=== PATIENT | female | born 1965 | race Caucasian/White ===

== ENCOUNTER 2023-03-28 12:32 | Emergency (ER) | payer BC, SELFPAY ==
[2023-03-28 12:43] VITALS: BP 153/100; PULSE 78; RESP 20; TEMP 37.4; O2SAT 99; BMI 28.3
--- NOTE | 2023-03-28 12:50 | CRLHL7_ITS ---
For Patients: As a result of the Cures Act, medical imaging exams and procedure reports are released immediately into your electronic medical record. You may view this report before your referring provider. If you have questions, please contact your health care provider. Indication: Injury. Technique: Left 3rd digit, 3 views. Comparison: None. Findings/Impression: Bones: Alignment is normal. No displaced fractures or bone lesions. Joint spaces: Unremarkable. Soft tissues: No radiopaque foreign bodies. Dictated by Ty Ramirez MD @ 03/28/2023 1:26:31 PM (Electronically Signed)
--- NOTE | 2023-03-28 14:14 | ED_ITS ---
HPI - Extremity Injury (Upper) General Date Seen: 03/28/23 Chief Complaint: Extremity Pain/Injury, Upper Stated Complaint: smashed L middle finger smashed/bleeding Time Seen by Provider: 03/28/23 12:33 Source: patient Mode of arrival: ambulatory Limitations: no limitations History of Present Illness HPI narrative: Patient is a 49-year-old female presents here with an injury to her left 3rd finger, she was doing some remodeling at home, when head it, between a pole and another pole. She complains of pain in the distal part of her left 3rd finger, it is split open slightly, she has been working with that and only at the [place] of her daughter she is here today to be seen. She denies any numbness tingling weakness, she is unsure when her last tetanus shot was but says she will get a tetanus shot. Denies any other MD complaint: injury to: finger Onset (ago): hour(s) Related Data Allergies Allergy/AdvReac Type Severity Reaction Status Date / Time clindamycin Allergy Verified 03/28/23 12:43 Penicillins Allergy Verified 03/28/23 12:43 Review of Systems Status of ROS: Reports: 6 or more systems reviewed and unremarkable except as noted in History and below [facility] Social History Smoking Status: Never smoker Do you use any of these nicotine containing products: None Second hand tobacco smoke exposure: Yes How often do you have a drink containing alcohol: never How often do you have six or more drinks on one occasion: Never AUDIT-C Alcohol total score: 0 Non-prescribed substance use: denies use service: No Exam Narrative: Exam Narrative: On examination here she is in no apparent distress she has a swelling with obvious hematoma of the distal pad surface of her left 3rd finger, there is a couple small vertical I am lacerations of approximately 2-3 mm each, with some tissue protruding from them. No subungual hematomas noted, or D IP joint has normal flexion extension, as does the PIP joint. I counseled her to get an x- ray, after some coaxing she was in agreement Const: Vital Signs, click to edit/add: Vital Signs - 24 hr 03/28/23 12:43 Temperature 99.4 F Pulse Rate [Pulse Oximeter] 78 Respiratory Rate 20 Blood Pressure [Ri ght Forearm] 153/100 H Pulse Oximetry 99 Oxygen Delivery Me thod Room Air Documenting provider has reviewed patient's vital signs: yes Course Course Hospital Course: This with the patient we got an x-ray, this showed no acute bony abnormality, given the swelling of that she has currently, would not suture these, we will clean it out, put some bacitracin and she or a stack finger splint, signs of infection or does discussed in detail, she has follow-up with these occur. Vital Signs Vital signs: Initial Vital Signs Temperature 99.4 F 03/28/23 12:43 Temperature Source Temporal Artery Scan 03/28/23 12:43 Pulse Rate 78 03/28/23 12:43 Pulse Rhythm Regular 03/28/23 12:43 Respiratory Rate 20 03/28/23 12:43 Blood Pressure 153/100 H 03/28/23 12:43 Blood Pressure Mean 117 H 03/28/23 12:43 Blood Pressure Position Sitting 03/28/23 12:43 Pulse Oximetry 99 03/28/23 12:43 Oxygen Delivery Method Room Air 03/28/23 12:43 Vital Signs Temperature 99.4 F 03/28/23 12:43 Pulse Rate 78 03/28/23 12:43 Respiratory Rate 20 03/28/23 12:43 Blood Pressure 153/100 H 03/28/23 12:43 Pulse Oximetry 99 03/28/23 12:43 Oxygen Delivery Method Room Air 03/28/23 12:43 Temperature 99.4 F 03/28/23 12:43 Pulse Rate 78 03/28/23 12:43 Respiratory Rate 20 03/28/23 12:43 Blood Pressure 153/100 H 03/28/23 12:43 Pulse Oximetry 99 03/28/23 12:43 Oxygen Delivery Method Room Air 03/28/23 12:43 MDM - Extremity Injury (Upper) Medical Records Attestation: I reviewed the patient's medical records. Imaging Data Finger XR: Attestation: I have reviewed the pertinent imaging results. My impression: Negative x-ray Radiologist's impression: Patient: CRISTY TOLEDO Facility:?[facility] Patient ID:?[id number] Site Patient ID:?[id number]. Site :?[id number] Study:?XRay Extremity Left 3rd finger 3v-03/28/2023 1:02:07 PM Ordering Physician:Goldie Hunter Final Report: Indication: Injury. Technique: Left 3rd digit, 3 views. Comparison: None. Findings/Impression: Bones: Alignment is normal. No displaced fractures or bone lesions. Joint spaces: Unremarkable. Soft tissues: No radiopaque foreign bodies. Dictated by Ty Ramirez MD @ 03/28/2023 1:26:31 PM (Electronic Signature) Discharge Plan Discharge Clinical Impression: Contusion of finger, Finger laceration Patient Disposition: Home, Self-Care Condition: Stable Instructions: Contusion in Adults (ED), Laceration Without Closure (ED) Additional Instructions: As I discussed with you we will you go home bacitracin daily to the wound, once the swelling goes away the wound will shrink common being normal laceration. Would recommend use of a Band-Aid till this occurs, and also use of the Stack finger splint. Return here if increasing fevers chills redness swelling or signs of infection, no evidence of a fracture on x-ray. Follow Up/Referrals: Provider,Not a Local [Primary Care Provider] - Stand Alone Forms: [facility]
== END 2023-03-28 13:29 | disposition home or self-care (01) ==
PROVIDERS: Emergency Provider Family Medicine
DX: S61.213A Laceration without foreign body of left middle finger without damage to nail, initial encounter (principal); W23.0XXA Caught, crushed, jammed, or pinched between moving objects, initial encounter
CPT/HCPCS: 73140; 99283

== ENCOUNTER 2025-06-17 15:02 | Emergency (ER) | payer OTHER, SELFPAY ==
--- OUTSIDE RECORDS SUMMARY | 2025-06-17 15:05 | XMS_ITS | Clinical Summary ---
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 Active nitrofurantoin macrocrystals/m onohydrate (Macrobid) 100 mg capsuleIndicati ons:UTI symptoms Take 1 Capsule (100 mg) by mouth two times daily. 10 Capsule 11/20/2024 Active Social History Tobacco Use Types Packs/Day Years Used Date Smoking Tobacco: Never Smokeless Tobacco: Never Social Connections Answer Date Recorded Do you often feel lonely or isolated from those around you? 0 11/19/2024 Financial Resource Strain Answer Date R ecorded Difficulty of Paying Living Expenses 3 12/20/2024 Difficulty of Paying Living Expenses Not on file 12/20/2024 Food Insecurity Answer Date Recorded Do you worry your food will run out before you are able to buy more? 1 11/19/2024 Transportation Needs Answer Date Record ed Does lack of transportation keep you from medica l appointments? 1 11/19/2024 Does lack of transportation keep you from work, meetings or getting things that you need? 1 11/19/2024 Housing Stability Answer Date Recorded What is your housing situation today? 1 11/19/2024 Utilities Answer Date Recorded Do you have trouble paying f or utilities (for example, heat, electricity, water, phone)? 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 Gender Identity Not on file Sexual Orientation Not on file Obstetrics History Last Filed Vital Signs Vital Sign Reading Time Taken Comments Blood Pressure 158/88 11/19/2024 2:57 PM LOSS PREVENTION CONSULTANT Pulse 79 11/19/2024 2:57 PM LOSS PREVENTION CONSULTANT Temperature 36.6 C (97.9 F) 11/19/2024 2:57 PM LOSS PREVENTION CONSULTANT Respiratory Rate 16 11/19/2024 2:57 PM LOSS PREVENTION CONSULTANT Oxygen Saturation 100% 11/19/2024 2:57 PM LOSS PREVENTION CONSULTANT Inhaled Oxygen Concentration - - Weight 79.8 kg (176 lb) 11/19/2024 2:57 PM LOSS PREVENTION CONSULTANT Height - - Body Mass Index - - Plan of Treatment Health Maintenance Due Date Last Done Comments Tetanus booster 1975 Depression screening for age 12+ 1976 HIV for age 15-65 1979 BMI (ht and wt on same day) for age 18+ 1982 Hepatitis C screening for ag e 18-79 1982 Pap test for age 21-65 1985 Colonoscopy through age 75 2009 Lipids for age 45-75 2009 Mammogram for age 45-75 2009 Pneumococcal series for age 50+ (1 of 1 - PCV) 2014 Zoster (shingles) series for age 50+ (1 of 2) 2014 COVID-19 vaccine series (1 - 2023- season) 2024 Influenza Vaccine (#1) 2025 RSV vaccine for adults or (1 - 1-dose 75+ series) 2039 Hepatitis B series for 19+ Aged Out N o longer eligible based on patient's age to complete this topic Insurance [facility] IN[facility]MN[facility] * Guarantor: [employer] Account Type Relation to Patient Date of Phone Billing Address Personal/Family [address] [place] [id number] Care Teams Iron And Steel Work Supervisor Relationship Specialty Start Date End Date Margarita Mullen MD [address] [place] [phone] PCP - General Family Practice 11/19/24
--- OUTSIDE RECORDS SUMMARY | 2025-06-17 15:05 | XMS_ITS | Encounter Summary ---
Author Organization [facility] Address [address] [place] [address] Care Team Providers Care Oyster Grower Name Role Phone Margarita Cardona M.D. Primary Care Provider + Encounter Details Date Type Department Care Team (Late st Contact Info) Description 05/27/2025 Orders Only [facility] [address] [place] [id number] Margarita Cardona M.D. [address] [place] [address] Screening Cancer Colon Social History Tobacco Use Types Packs/Day Years Used Date Smoking Tobacco: Never Passive Smoke Exposure: Past Smokeless Tobacco: Never Alcohol Use Standard Drinks/Week Comments Never 0 (1 standard drink = 0.6 oz pur e alcohol) Humiliation, Afraid, Rape, and Kick questionnair e Answer Date Recorded Within the last year, have y ou been afraid of your partner or ex-partner? No 01/31/2022 Within the last year, have y ou been humiliated or emotionally abused in other ways by your partner or ex-partner? No Within the last year, have y ou been kicked, hit, slapped, or otherwise physically hurt by your partner or ex-partner? No 01/31/2022 Within the last year, have y ou been raped or forced to have any kind of sexual activity by your partner or ex-partner? No 01/31/2022 Hunger Vital Sign Answer Date Recorded Within the past 12 months, y ou worried that your food would run out before you got the money to buy more. Never true 02/01/20 22 Within the past 12 months, t he food you bought just didn't last and you didn't have money to get more. Never true 01/31/2022 PRAPARE - Transportation Answer Date Re corded In the past 12 months, has l ack of transportation kept you from medical appointments or from getting medications? No 01/18 In the past 12 months, has l ack of transportation kept you from meetings, work, or from getting things needed for daily living? No 01/31/2022 Housing Stability Vital Sign Answer Reyes e Recorded In the last 12 months, was t here a time when you were not able to pay the mortgage or rent on time? No 01/31/2022 In the last 12 months, how many places have you lived? 1 01/31/2022 In the last 12 months, was t here a time when you did not have a steady place to sleep or slept in a care home (including now)? No 01/31/2022 Depression Answer Date Recor ded PHQ-9 Total Score (max 27) 4 02/14 Education Answer Date Recorded What is the highest level of school you have completed or the highest degree you have received? 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 [address] [place] [address] Scheduled Orders Name Type Priority Associated Diagnoses Orde r Schedule Cologuard - Sent Out Lab Lab Routine Screening Cancer Colon Expected: 06/10/2025, Expires: 08/27/2026 documented as of this encounter Visit Diagnoses Diagnosis Screening Cancer Colon documented in this encounter Additional Health Concerns Assessment Noted Time PHQ-9 Depression Total Score: 4 02/15/20 24 12:06 PM CDT documented as of this encounter Care Teams Oyster Grower Relationship Specialty Start Date End Date Margarita Cardona M.D. [address] [place] [address] PCP - General 05/04/17 documented as of this encounter
--- OUTSIDE RECORDS SUMMARY | 2025-06-17 15:05 | XMS_ITS | Clinical Summary ---
Author Organization [facility] Address [address] [place] [address] Care Team Providers Care Rf Technician Name Role Phone Margarita Cardona M.D. Primary Care Provider + Source Comments Patient records contain information from all sites at [facility]. For routine questions regarding patient records, call [phone] during business hours, M-F 8:00 AM - 5:00 PM Central Time. Record requests for emergency care only can be directed to [phone] at any time.[facility] Allergies Active Allergy Reactions Criticality Noted Date Comments Amoxicillin-Pot Clavulanate Rash 02/02/20 11 Clindamycin Hives (Reselect Reaction) 0 Fluconazole Rash Medium 01/30/2020 Penicillins Rash 10/27/2015 Medications LACTOBACILLUS 3/FOS/PANTETHINE (PROBIOTIC AND ACIDOPHILUS ORAL) Take 1 capsule by mouth daily. 6 Active digestive enzymes capsule Take 1 capsule by mouth 3 (three) times a day. Active albuterol 90 mcg/actuation inhaler Inhale 2 puffs every 4 (four) hours as needed for wheezing or shortness of breath. 18 g 11 4 Active hydrOXYzine (ATARAX) 10 mg tablet Take 1-2 tablets (10-20 mg total) by mouth every 6 (six) hours as needed for anxiety. 100 tablet 2 4 Active ALPRAZolam (Xanax) 0.5 mg tablet Take 1 tablet (0.5 mg total) by mouth at bedtime as needed for anxiety. 30 tablet 5 Active Active Problems Problem Noted Date Diagnosed Date Asthma Mild Intermittent 02/15/2024 Anxiety Generalized Disorder 01/26/2018 Insomnia 09/26/2013 Resolved Problems Problem Noted Date Diagnosed Date Resolved Date Pneumonia 01/16/2020 01/18/2020 Encounters Date Type Department Care Team Description 06/10/2025 Refill Department of Family Medicine in [place], [place] [address] [place] [address] Margarita Cardona M.D. Med Refill 06/10/2025 Orders Only [facility] [address] [place] [address] Margarita Cardona M.D. Screening Cancer Colon 05/27/2025 Orders Only [facility] [address] [place] [address] Margarita Cardona M.D. Screening Cancer Colon 03/25/2025 Orders Only [facility] Margarita Cardona M.D. Screening Examination Diabetes Mellitus; Screening Mammogram Breast Cancer from Last 3 Months Immunizations Immunization Administration Dates Next Due RZV (SHINGRIX) 04/02/2019(Deferred: Patient Ref used) Tdap 04/02/2019(Deferred: Patient Ref used) Social History Tobacco Use Types Packs/Day Years Used Date Smoking Tobacco: Never Passive Smoke Exposure: Past Smokeless Tobacco: Never Tobacco Cessation:Counseling Given: Not Answered Alcohol Use Standard Drinks/Week Comments Never 0 [...] place to sleep or slept in a mcc (including now)? No 01/31/2022 Depression Answer Date Recor ded PHQ-9 Total Score (max 27) 4 02/14 Education Answer Date Recorded What is the highest level of school you have completed or the highest degree you have received? 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 Gender Identity Female 01/31/2022 9:56 AM CDT Sexual Orientation Straight 01/31/2022 9: 56 AM CDT Last Filed Vital Signs Vital Sign Reading Time Taken Comments Blood Pressure 137/86 02/15/2024 11:51 AM CDT Pulse 62 02/15/2024 11:51 AM CDT Temperature 37.1 C (98.8 F) 02/15/2024 11:51 AM CDT Respiratory Rate 18 01/30/2020 4:12 PM CDT Oxygen Saturation 96% 01/28/2020 11:00 AM CDT Inhaled Oxygen Concentration - - Weight 79.4 kg (175 lb 0.7 oz) 02/15/2024 11:51 AM CDT Height 165 cm (5' 4.96) 02/15/2024 11:51 AM CDT Body Mass Index 29.16 02/15/2024 11:51 AM CDT Plan of Treatment Upcoming Encounters Date Type Department Care Team (Late st Contact Info) Description 08/14/2025 2:00 PM CDT Office Visit Department of Family Medicine in [place], [place] [address] [place] [address] Margarita Cardona M.D. [address] [place] [address] Health Maintenance Due Date Last Done Comments CT Colonography 1964 Colonoscopy 1964 FIT 1964 Mammogram 1964 DTaP,Tdap,and Td Vaccines (1 - Tdap) 1983 Pneumococcal vaccine (50+ years) (1 of 2 - PCV) 1983 Zoster Vaccines (1 of 2) 2014 RSV vaccine - (32-36 weeks) or 60+ years (1 - Risk 60-74 years 1-dose series) 2024 COVID-19 Vaccine (1 - season) 2024 Depression Screening (Annual PHQ-2) 11/20/2024 Fasting Glucose for Diabetes Screening 01/31/2025 01/31/2022, 01/18/2020, 01/17/2020, Additional history exists Cologuard 02/10/2025 02/10/2022, 02/09/2022 Colorectal Cancer Screening 02/10/2025 Influenza Vaccine (#1) 2025 Lipid (Cholesterol) Screening 01/31/2027 01/31/2022 HIV Screening Completed 01/17/2020 Hepatitis C Screening Completed 01/31/2022 IPV Vaccines Aged Out No longer eligi ble based on patient's age to complete this topic Procedures Procedure Name Priority Date/Time Associated Diagnosis Comments COLOGUARD Routine 02/09/2022 8:00 PM CDT Screening Cancer Colon HEMOGLOBIN A1C, B Routine 01/31/2022 10: 30 AM CDT Screening Examination Diabetes Mellitus HCV AB SCRN W/REFLEX TO HCV PCR, S Routine 01/31/2022 10:30 AM CDT Screening Examination For Viral Disease LIPID PANEL, S Routine 01/31/2022 10:30 AM CDT Screening Lipid HIV-1/-2 AG AND AB SCREEN, PLASMA STAT 01/17/2020 4:14 PM 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 A negative Cologuard result indicates a low likelihood that a colorectal cancer (CRC) or advanced adenoma (adenomatous polyps with more advanced pre-malignant features) is present. The chance that a person with a negative Cologuard test has a colorectal cancer is less than 1 in 1500 (negative predictive value >99.9%) or has an advanced adenoma is less than 5.3% (negative predictive value 94.7%). These data are based on a prospective cross-sectional study of 10,000 individuals at average risk for colorectal cancer who were screened with both Cologuard and colonoscopy. (Nazanin Jean al, N Engl J Med 2014;370(14):0754-5475) The normal value (reference range) for this assay is negative. COLOGUARD RE-SCREENING RECOMMENDATION: Periodic colorectal cancer screening is an important part of preventive healthcare for asymptomatic individuals at average risk for colorectal cancer. Following a negative Cologuard result, the [place] Cancer Society and U.S. Multi-Society Task Force screening guidelines recommend a Cologuard re-screening interval of 3 years. References: [employer] Guideline for Colorectal Cancer Screening: https://www.cancer.org/cancer/abfwo-pqzogo-egkpti/detection- diagnosis-staging/acs-recommendations.html.; Pedro TAVAREZ, Vince HOLT, Tammy ALEMAN, Colorectal Cancer Screening: Recommendations for Physicians and Patients from the U.S. Multi-Society Task Force on Colorectal Cancer Screening , Am J Gastroenterology 2017; 112:0545-3922. TEST DESCRIPTION: Composite algorithmic analysis of stool DNA-biomarkers with hemoglobin immunoassay. Quantitative values of individual biomarkers are not reportable and are not associated with individual biomarker result reference ranges. Cologuard is intended for colorectal cancer screening of adults of either sex, 45 years or older, who are at average-risk for colorectal cancer (CRC). Cologuard has been approved for use by the U.S. FDA. The performance of Cologuard was established in a cross sectional study of average-risk adults aged 50-84. Cologuard performance in patients ages 45 to 49 years was estimated by sub-group analysis of near-age groups. Colonoscopies performed for a positive result may find as the most clinically significant lesion: colorectal cancer [4.0%], advanced adenoma (including sessile serrated polyps greater than or equal to 1cm diameter) [20%] or non- advanced adenoma [31%]; or no colorectal neoplasia [45%]. These estimates are derived from a prospective cross-sectional screening study of 10,000 individuals at average risk for colorectal cancer who were screened with both Cologuard and colonoscopy. (Nazanin Solano et al, N Engl J Med 2014;370(14):3411-0242.) Cologuard may produce a false negative or false positive result (no colorectal cancer or precancerous polyp present at colonoscopy follow up). A negative Cologuard test result does not guarantee the absence of CRC or advanced adenoma (pre-cancer). The current Cologuard screening interval is every 3 years. ([employer] [employer] Society and U.S. Multi-Society Task Force). Cologuard performance data in a 10,000 patient pivotal study using colonoscopy as the reference method can be accessed at the following location: www.[employer].com/results. Additional description of the Cologuard test process, warnings and precautions can be found at www.[employer] Technology[employer].com. Stool (Stool) 02/09/2022 8:0 0 PM CDT 02/11/2022 10:11 AM CDT us Margarita Cardona M.D. LAB BODY FLUIDS AND STOO LS ORDERABLES Final Result [facility] [address] [place] [address] [facility] [address] [facility], [address] [place] [address] * (ABNORMAL) Lipid Panel (01/31/2022 10:30 AM CDT) Cholesterol, Total 256(H) mg/dL 2021 4:13 PM CDT [facility] Comment: ----REFERENCE VALUE---- Desirable: < 200 Borderline high: 200 - 239 High: > or = 240 Triglycerides 114 mg/dL 01/31/2022 4:13 PM CDT [facility] Comment: ----REFERENCE VALUE---- Normal: <150 Borderline high: 150-199 High: 200-499 Very high: > or =500 Cholesterol, HDL 70 >=50 mg/dL 02/01/20 4:13 PM CDT [facility] Calculated LDL 163(H) mg/dL 01/31/2022 4:13 PM CDT [facility] Comment: ----REFERENCE VALUE---- Desirable: <100 mg/dL Above Desirable: 100-129 mg/dL Borderline High: 130-159 mg/dL High: 160-189 mg/dL Very High: >=190 mg/dL Cholesterol, Non-HDL, Calculated 186(H) mg/dL 01/31/2022 4:13 PM CDT [facility] Comment: ----REFERENCE VALUE---- Desirable: <130 Above Desirable: 130-159 Borderline high: 160-189 High: 190-219 Very high: > or =220 Blood (Blood, Venous) 01/31/2022 10:30 AM CDT 01/31/2022 3:08 PM CDT us Margarita Cardona M.D. LAB BLOOD ADD-ON Final R esult [facility] [address] [place] [address], [facility] in [place] [address] [place] [address] * HCV Ab Scrn w/Reflex to HCV PCR, Serum (01/31/2022 10:30 AM CDT) HCV Ab Screen, S Negative Negative 02/01/2022 8:[address] [facility] Comment:[id number]-[id number] rat io is <1.00. Blood (Blood, Venous) 01/31/2022 10:30 AM CDT 02/01/2022 6:54 AM CDT Margarita Cardona M.D. LAB MICROBIOLOGY - BLOOD ORDERABLES Final Result [facility] [address] [place] [address] [facility] Dept. of Laboratory Medicine and Pathology [address] [place] [address] * Hemoglobin A1c (01/31/2022 10:30 AM CDT) Pathologist [facility] Hemoglobin A1c, B 5.1 4.2 - 5.6 % 01/31/2022 12:49 PM CDT [facility] Blood (Blood, Venous) 01/31/2022 10:30 AM CDT 01/31/2022 11:58 AM CDT Margarita Cardona M.D. LAB BLOOD ADD-ON Final R esult [facility] [address] [place] [address], [place] [address] * HIV-1/-2 Ag and Ab Screen, Plasma (01/17/2020 4:14 PM PIPE ORGAN MECHANIC) HIV-1/-2 Ag and Ab Screen, P Negative Negative 01/17/2020 9:26 [address] [facility] Comment: Negative result does not rule out HIV infection. If exposure to HIV infection occurred <14 days ago, contact the laboratory to request addition of HIV-1 RNA detection / quantification test (HIVQN). Blood 01/17/2020 4:14 PM PIPE ORGAN MECHANIC 01/17/2020 8:33 PM PIPE ORGAN MECHANIC us Jimmie Bergman M.D. LAB MICROBIOLOGY - BLOOD O RDERABLES Final Result [facility] [address] [place] [address] [facility] Dept. of Laboratory Medicine and Pathology [address] [id number] from Last 3 Months or Most Recently Relevant to Health Maintenance Insurance CIG Advance Directives For more information, please contact: [phone] * Full Code (Latest Code Status on File) Date Activated Date Inactivated Comments 01/16/2020 7:06 AM 01/18/2020 4:52 PM Question Answer Comments Full Code: Discussed Care Teams Rf Technician Relationship Specialty Start Date End Date Margarita Cardona M.D. [address] [place] [address] PCP - General 05/04/17
--- OUTSIDE RECORDS SUMMARY | 2025-06-17 15:05 | XMS_ITS | Encounter Summary ---
Author Organization [facility] Address [address] [place] [address] Care Team Providers Care Lcpc Name Role Phone Margarita Cardona M.D. Primary Care Provider + Encounter Details Date Type Department Care Team (Late st Contact Info) Description 06/10/2025 Orders Only [facility] [address] [place] [id number] Margarita Cardona M.D. [address] [place] [address] Screening Cancer Colon Social History [...] the money to buy more. Never true 03/14/20 22 Within the past 12 months, t [...] place to sleep or slept in a group home (including now)? No 01/31/2022 Depression Answer Date Recor ded PHQ-9 Total Score (max 27) 4 02/14 Education Answer Date Recorded What is the highest level of school you have completed or the highest degree you have received? 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 [address] [place] [address] documented as of this encounter Visit Diagnoses Diagnosis Screening Cancer Colon documented in this encounter Additional Health Concerns Assessment Noted Time PHQ-9 Depression Total Score: 4 02/15/20 24 12:06 PM CDT documented as of this encounter Care Teams Lcpc Relationship Specialty Start Date End Date Margarita Cardona M.D. [address] [place] [phone] PCP - General 05/04/17 documented as of this encounter
--- OUTSIDE RECORDS SUMMARY | 2025-06-17 15:05 | XMS_ITS | Encounter Summary ---
Author Organization [facility] Address [address] [place] [address] Care Team Providers Care Psychiatric Np Name Role Phone Margarita Cardona M.D. Primary Care Provider + Reason for Visit * Reason Comments Med Refill Encounter Details Date Type Department Care Team (Late st Contact Info) Description 06/10/2025 Refill Department of Family Medicine in [place], [place] [address] [place] [address] Margarita Cardona M.D. [address] [place] [phone] Med Refill Social History Tobacco Use Types Packs/Day Years [...] place to sleep or slept in a alf (including now)? No 01/31/2022 Depression Answer Date Recor ded PHQ-9 Total Score (max 27) 4 02/14 Education Answer Date Recorded What is the highest level of school you have completed or the highest degree you have received? 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 - 06/13/2025 3:33 PM CDT No showed her last visit with me. I haven't seen her in some time. * Telephone Encounter - Christi Cramer R.N. - 06/12/2025 8:09 AM CDT R: Prescription pended for refill. S: Request from: pharmacy B: Last order date 12/12/2024 A: Name of Medication(s) Needing Refill: Requested Prescriptions Pending Prescriptions Disp Refills ALPRAZolam (Xanax) 0.5 mg tablet [Pharmacy Med Name: ALPRAZOLAM 0.5MG TABS] 30 tablet 0 Sig: TAKE ONE TABLET BY MOUTH AT BEDTIME NEEDED FOR ANXIETY Last Appointment: 02/15/2024 Future Appointment: 08/14/2025 Pharmacy Verified: Yes * Telephone Encounter - Hank Dean V. - 06/12/2025 6:10 AM CDT Needs Review: Med Refill Team is unable to forward request to provider. Controlled Substance Primary Provider: Margarita Cardona M.D. Requested Prescriptions Pending Prescriptions Disp Refills ALPRAZolam (Xanax) 0.5 mg tablet [Pharmacy Med Name: ALPRAZOLAM 0.5MG TABS] 30 tablet 0 Sig: TAKE ONE TABLET BY MOUTH AT BEDTIME NEEDED FOR ANXIETY documented in this encounter Plan of Treatment Upcoming Encounters Date Type Department Care Team (Late st Contact [facility]) Description 08/14/2025 2:00 PM CDT Office Visit Department of Family Medicine in [place], [place] [address] [place] [address] Margarita Cardona M.D. [address] [place] [phone] documented as of this encounter Visit Diagnoses Not on filedocumented in this encounter Additional Health Concerns Assessment Noted Time PHQ-9 Depression Total Score: 4 02/15/20 24 12:06 PM CDT documented as of this encounter Care Teams Psychiatric Np Relationship Specialty Start Date End Date Margarita Cardona M.D. [address] [place] [phone] PCP - General 05/04/17 documented as of this encounter
[2025-06-17 15:08] VITALS: BP 140/92; PULSE 82; RESP 16; TEMP 36.6; O2SAT 97; BMI 27.1
--- NOTE | 2025-06-17 15:30 | ED.GENADULT ---
HPI - General Adult General Chief complaint: Dental/Oral/Mouth Injury/Pain Stated complaint: pain in upper jaw after root cannel Time Seen by Provider: 06/17/25 15:06 History of Present Illness HPI narrative: pt. presents to the ED today with pain in the both sides of the upper jaw following a root cannel in the upper right jaw. pt. consulted with provider that did the surgery and he want to place the pt. on antibiotics but pt. is allergic to all the antibiotic he want to prescribed. pt. was then instructed to present to an or ED for further evaluation 60-year-old woman presenting to the emergency department with concern of possible dental infection. Had recent root canal and has follow-up with dentist anticipated in a day or 2 but was recommended to come to the emergency department due to this increased pain in bilateral upper face. Root canal apparently took place in the right upper dentition. Due to apparent antibiotic allergies was recommended to present to the emergency department. She has not had fever nor drainage. A little puffy in the upper face. Related Data Home Medications ?Medication ?Instructions ?Recorded ?Confirmed albuterol sulfate 90 mcg/actuation 2 puff inhalation Q4H PRN wheezing 06/17/25 06/17/25 aerosol inhaler alprazolam 0.5 mg tablet 0.5 mg PO QPM PRN anxiety 06/17/25 06/17/25 hydroxyzine HCl 10 mg tablet 10 - 20 mg PO Q6H PRN anxiety 06/17/25 06/17/25 Previous Rx's ?Medication ?Instructions ?Recorded cefdinir 300 mg capsule 300 mg PO BID 7 days #14 caps 06/17/25 oxycodone-acetaminophen 5 mg-325 1 - 2 tab PO Q4-6H PRN pain #8 tabs 06/17/25 mg tablet (Percocet) Allergies Allergy/AdvReac Type Severity Reaction Status Date / Time clindamycin Allergy Rash Verified 06/17/25 15:07 Penicillins Allergy Rash Verified 06/17/25 15:07 azithromycin AdvReac Mild Abdominal Verified 06/17/25 15:07 Pain Review of Systems Status of ROS: Reports: 6 or more systems reviewed and unremarkable except as noted in History and below PFSH PFSH Social History Smoking Status: Never smoker Do you use any of these nicotine containing products: None Second hand tobacco smoke exposure: Yes How often do you have a drink containing alcohol: never How often do you have six or more drinks on one occasion: Never AUDIT-C Alcohol total score: 0 Non-prescribed substance use: denies use service: No Exam Narrative: Exam Narrative: Pleasant. NAD. Breathing easily. Oropharynx is unremarkable dentition in good repair. Do not appreciate any swelling. Capped teeth in the upper maxillary dentition as expected. Not tender to percussion. Extraocular movements are full. Minimal discomfort perhaps to palpation of the upper face right greater than left. Const: Vital Signs, click to edit/add: Vital Signs - 24 hr 06/17/25 15:08 Temperature 97.9 F Pulse Rate [Pulse Oximeter] 82 Respiratory Rate 16 Blood Pressure [Ri ght Upper Arm] 140/92 H Pulse Oximetry 97 Oxygen Delivery Me thod Room Air Documenting provider has reviewed patient's vital signs: yes Course Vital Signs Vital signs: Initial Vital Signs Temperature 97.9 F 06/17/25 15:08 Temperature Source Temporal Artery Scan 06/17/25 15:08 Pulse Rate 82 06/17/25 15:08 Respiratory Rate 16 06/17/25 15:08 Blood Pressure 140/92 H 06/17/25 15:08 Blood Pressure Mean 108 H 06/17/25 15:08 Blood Pressure Position Sitting 06/17/25 15:08 Pulse Oximetry 97 06/17/25 15:08 Oxygen Delivery Method Room Air 06/17/25 15:08 Vital Signs Temperature 97.9 F 06/17/25 15:08 Pulse Rate 82 06/17/25 15:08 Respiratory Rate 16 06/17/25 15:08 Blood Pressure 140/92 H 06/17/25 15:08 Pulse Oximetry 97 06/17/25 15:08 Oxygen Delivery Method Room Air 06/17/25 15:08 Temperature 97.9 F 06/17/25 15:08 Pulse Rate 82 06/17/25 15:08 Respiratory Rate 16 06/17/25 15:08 Blood Pressure 140/92 H 06/17/25 15:08 Pulse Oximetry 97 06/17/25 15:08 Oxygen Delivery Method Room Air 06/17/25 15:08 Medical Decision Making MDM Narrative Medical decision making narrative: Presumed dental infection. Does not appear to be suffering from significant sinus disease today. We discussed options available for antibiotics. I think without more significant symptoms are not sure benefit here of imaging at this time furthermore has close follow-up. See patient discharge plan for further discussion It sounds appropriate to start you on antibiotics with concern of potential infection. As discussed I am prescribing cefdinir from [facility] (apologies that this is not available today in [facility] so sent to pharmacy) Also small quantity of Percocet. Remember that each tablet of Percocet contains 5 mg of oxycodone and 325 mg of acetaminophen. Either can be combined with your ibuprofen. Please follow-up in a day or 2 with your dentist as planned. Medical Records Medical records reviewed: Yes I reviewed the patient's medical records Discharge Plan Discharge Clinical Impression: Facial pain Patient Disposition: Home w/ Parent or Adult Condition: Stable Additional Instructions: It sounds appropriate to start you on antibiotics with concern of potential infection. As discussed I am prescribing cefdinir from [facility] (apologies that this is not available today in [facility] so sent to pharmacy) Also small quantity of Percocet. Remember that each tablet of Percocet contains 5 mg of oxycodone and 325 mg of acetaminophen. Either can be combined with your ibuprofen. Please follow-up in a day or 2 with your dentist as planned. Prescriptions: New cefdinir 300 mg capsule 300 mg PO BID 7 Days Qty: 14 0RF oxycodone-acetaminophen [Percocet] 5-325 mg tablet 1 - 2 tab PO Q4-6H PRN (Reason: pain) Qty: 8 0RF No Action alprazolam 0.5 mg tablet 0.5 mg PO QPM PRN (Reason: anxiety) albuterol sulfate 90 mcg/actuation HFA aerosol inhaler 2 puff INHALATION Q4H PRN (Reason: wheezing) hydroxyzine HCl 10 mg tablet 10 - 20 mg PO Q6H PRN (Reason: anxiety) Follow Up/Referrals: Provider,Not a Local [Primary Care Provider, Family Practice] Stand Alone Forms: [employer] Info Instructions
== END 2025-06-17 16:08 | disposition home or self-care (01) ==
LOC: ED 15:53
PROVIDERS: Emergency Provider Family Medicine
DX: G50.1 Atypical facial pain (principal)
CPT/HCPCS: 99283; 99284